=== PATIENT | female | born 1975 | race Caucasian/White ===

== ENCOUNTER → 2018-03-08 19:08 | Outpatient (CLI) | payer BC ==
[~2018-03-08 19:08] MED LIST: ATIVAN0.5 MG PO; LEXAPRO20 MG PO; ULTRAM50 MG
[2018-04-06 07:28] VITALS: BMI 25.7
== END | disposition home or self-care (01) ==
LOC: D.MAMMO 08:45
DX: Z12.31 Encounter for screening mammogram for malignant neoplasm of breast (principal)

== ENCOUNTER 2018-04-06 06:45 | Day surgery (SDC) | payer BC ==
[2018-03-30 14:38] LABS: BASOPHILS 0.4 % (0-2); EOSINOPHILS 1.4 % (0-7); HEMATOCRIT 38.7 % (36.0-48.0); HEMOGLOBIN 13.4 g/dL (12-16); IMMATURE GRANULOCYTES 0.2 % (0-5); LYMPHOCYTES 32.9 % (15-50); MCH 32.9 pg (26.0-34.0); MCHC 34.6 g/dL (31.0-37.0); MCV 95.1 fL (80.0-100.0); MEAN PLATELET VOLUME 9.8 fL (7.4-10.4); MONOCYTES 7.8 % (2-11); NEUTROPHILS 57.3 % (40-80); PLATELET COUNT 271 10x3/uL (130-400); RBC 4.07 10x6/uL (4.00-5.40); RDW 12.3 % (11.5-14.5); WBC 8.1 10x3/uL (4.8-10.8)
[2018-03-30 14:54] LABS: CALC OSMOLALITY 274 mosm/kg (275-300); CALCIUM 8.9 mg/dL (8.5-10.1); CARBON DIOXIDE 26.1 mmol/L (21.0-32.0); CHLORIDE - SERUM 103 mmol/L (98-107); CREATININE - SERUM 0.7 mg/dL (0.6-1.3); GLUCOSE 103 mg/dL (74-106); SODIUM 138 mmol/L (136-145); UREA NITROGEN 10 mg/dL (7-18); eGFR NON AFRICAN AMERICAN > 90 mL/min (90-120)
[~2018-04-06] VITALS: Ht 160 cm; Wt 65.8 kg
[~2018-04-06 06:45] MED LIST changes: -ULTRAM50 MG
[2018-04-06] MEDS ORDERED: ULTRAM50 MG (07:09)
[2018-04-06 07:28] VITALS: BP 109/67; Ht 160 cm; Wt 65.8 kg
[2018-04-06 07:45] LABS: HCG URINE NEGATIVE (NEGATIVE)
== END 2018-04-06 14:00 | disposition home or self-care (01) ==
LOC: D.OPS 06:45 → D.PAN 08:45 → D.OPS 08:45
PROVIDERS: Obstetrics & Gynecology
DX: R10.2 Pelvic and perineal pain (principal); N73.6 Female pelvic peritoneal adhesions (postinfective); N99.61 Intraoperative hemorrhage and hematoma of a genitourinary system organ or structure complicating a genitourinary system procedure